=== PATIENT | female | born 1975 | race Caucasian/White ===

== ENCOUNTER → 2019-03-27 | Outpatient (CLI) | payer OTHER ==
--- NOTE | 2019-03-27 11:37 | MM ---
Reason for exam: screening (asymptomatic). Baseline mammogram. History: Patient history of other cancer. Physical Findings: Nurse did not find any significant physical abnormalities on exam. MG Screening Mammo w CAD Bilateral CC and MLO view(s) were taken. XCCL view(s) were taken of the left breast. The breast tissue is heterogeneously dense. This may lower the sensitivity of mammography. There is no discrete abnormality. These results were verbally communicated with the patient and result sheet given to the patient on 03/27/19. ASSESSMENT: Negative, BI-RAD 1 RECOMMENDATION: Routine screening mammogram of both breasts in 1 year.
== END | disposition home or self-care (01) ==
LOC: RADMAMWWP 09:48
PROVIDERS: ATTEND Family Medicine
DX: Z12.31 Encounter for screening mammogram for malignant neoplasm of breast (principal)
CPT/HCPCS: 77067

== ENCOUNTER → 2019-05-23 | Outpatient (CLI) | payer OTHER ==
[2019-05-23 15:02] LABS: Basophils % (A) 1 %; Eosinophils # (A) 0.1 k/uL (0-0.7); Eosinophils % (A) 1 %; HCT 39.8 % (34.0-46.0); HGB 13.3 gm/dL (11.4-16.0); Lymphocytes # (A) 2.3 k/uL (1.0-4.8); Lymphocytes % (A) 35 %; MCH 29.5 pg (25.0-35.0); MCHC 33.4 g/dL (31.0-37.0); MCV 88.3 fL (80.0-100.0); Monocytes # (A) 0.4 k/uL (0-1.0); Monocytes % (A) 6 %; Neutrophils # (A) 3.5 k/uL (1.3-7.7); Neutrophils % (A) 55 %; Platelet Count 244 k/uL (150-450); RBC 4.51 m/uL (3.80-5.40); RDW 13.2 % (11.5-15.5); WBC 6.4 k/uL (3.8-10.6)
== END | disposition home or self-care (01) ==
LOC: LABPAT 14:16
PROVIDERS: ATTEND Obstetrics & Gynecology
DX: Z01.818 Encounter for other preprocedural examination (principal)
CPT/HCPCS: 36415; 85025

== ENCOUNTER 2020-03-26 08:04 | Day surgery (SDC) | payer OTHER ==
[2020-03-24 09:37] VITALS: BMI 25.7
--- NOTE | 2020-03-24 16:31 | P.HPOB ---
History of Present Illness H&P Date: 03/24/20 Chief Complaint: Family planning Isabelle is a 45-year-old female who is completed her family planning and desires permanent sterilization. She is scheduled for a left scopic tubal ligation with Filshie clips. Risks/benefits/alternatives to this procedure were reviewed with patient in detail and did include but were not limited to bleeding infection, damage to bladder or bowel, vascular injuries, nerve injuries, potential need for other surgery. It is noted she does have an IUD as well and will be removed at the time of her surgery. There is also possibility that a cystoscopy may be required if we are unable to visualize the strings or find the IUD in initially. All other questions are answered for her prior to proceeding to the operative room. Past Medical History Past Medical History: No Reported History History of Any Multi-Drug Resistant Organisms: None Reported Additional Past Surgical History / Comment(s): wisdom teeth removed Past Anesthesia/Blood Transfusion Reactions: No Reported Reaction Smoking Status: Current every day smoker - Past Family History Mother Family Medical History: No Reported History Medications and Allergies Home Medications Medication Instructions Recorded Confirmed Type Dextroamphetamine/Amphetamine 30 mg PO BID 03/24/20 03/24/20 History [Adderall] Allergies Allergy/AdvReac Type Severity Reaction Status Date / Time No Known Allergies Allergy Verified 03/24/20 09:23 Exam Osteopathic Statement: *. No significant issues noted on an osteopathic structural exam other than those noted in the History and Physical/Consult. Intake and Output 03/24/20 03/24/20 03/24/20 06:59 14:59 22:59 Other: Weight 68.039 kg - OBG Physical Exam Breast: both: normal (no masses) Abdomen: bowel sounds normal, no diffuse tenderness, no bruit present, no guarding noted, no hepatomegaly, no splenomegaly, no mass Vulva: both: normal Vagina: normal moisture, no discharge Cervix: no lesion, no discharge Uterus: normal size, normal contour Adnexa: both: normal Anus/Rectum: normal perianal skin, no rectal mass, no hemorrhoids, heme negative
[~2020-03-26 08:04] MED LIST: DEXAMETHASONE SOD PHOSPHATE 4 MG/ML 1 ML VIAL IV ONE; HYDROmorphone 0.5 MG/0.5 ML SYRINGE IVP PRN; LACTATED RINGERS 1,000 ML IV SCH; LIDOCAINE 1% (10MG/ML) FOR IV START INTRADERMA PRN; MIDAZOLAM 2 MG/2 ML VIAL IV PRN; ONDANSETRON 4 MG/2 ML VIAL IVP ONE; Pre Op ABX Message 1 EACH MISC MISCELLANE ONE
[2020-03-26] MEDS ORDERED: LACTATED RINGERS 1,000 ML IV ONE (08:28)
[2020-03-26] MEDS ORDERED: MIDAZOLAM 2 MG/2 ML VIAL ONE (09:19)
[2020-03-26] MEDS ORDERED: LIDOCAINE 1% INJ 10MG/ML (20 ML MDV) ONE (09:19)
[2020-03-26] MEDS ORDERED: KETOROLAC 15 MG/ML 1 ML VIAL ONE (09:19)
[2020-03-26] MEDS ORDERED: GLYCOPYRROLATE 0.2 MG/ML 2 ML VIAL ONE (09:19)
[2020-03-26] MEDS ORDERED: NEOSTIGMINE 1 MG/ML 10 ML VIAL ONE (09:19)
[2020-03-26] MEDS ORDERED: PROPOFOL 10 MG/ML 20 ML VIAL IV ONE (09:19)
[2020-03-26] MEDS ORDERED: fentaNYL (PF) 50 MCG/ML 2 ML AMP ONE (09:19)
[2020-03-26] MEDS ORDERED: ROCURONIUM 10 MG/ML (10 ML VIAL) IV ONE (09:19)
[2020-03-26] MEDS ORDERED: BUPIVACAINE (PF) 0.25% 30 ML VIAL SQ ONE (09:38)
--- NOTE | 2020-03-26 09:54 | P.OP ---
Date of Procedure: 03/26/20 Preoperative Diagnosis: Family planning Postoperative Diagnosis: Same Procedure(s) Performed: Laparoscopic tubal occlusion with Filshie clips and removal of IUD Anesthesia: MARIA GUADALUPE Surgeon: Cayetano Hull Estimated Blood Loss (ml): 3 IV fluids (ml): 500 Urine output (ml): 30 Pathology: none sent Condition: stable Disposition: same day Operative Findings: Normal pathology Description of Procedure: Isabelle was taken to the operating suite where a general anesthetic was found be adequate. She was prepped and draped in normal sterile fashion and placed in the dorsal lithotomy position. Initially a weighted speculum was inserted in vagina and anterior lip of cervix was identified and grasped with single-tooth tenaculum. Uterus was then sounded to 9 cm and a manipulator was inserted without difficulty. Just prior to this the IUD was grasped with a ring forceps and removed without difficulty. Red rubber catheter was then used to drain the bladder of urine, all other vaginal incidents removed. Gloves were changed and attention was turned to the abdominal portion procedure were 2 mL of quarter percent Marcaine was injected periumbilically. Through this injected anesthetic a 5 mm skin incision was made and through this incision, under direct visualization with an optical trocar and sleeve the camera was inserted. Once peritoneal placement was assured gas was allowed to fully insufflate the abdomen and patient's placement steep Trendelenburg position. A second port and sleeve were then inserted 3 cm above the pubic symphysis in the midline through an 8 mm skin incision. This trocar was again inserted under direct visualization. Observations Upton noted. Uterus was then elevated and fully tubes identified. First the right fallopian tube than left fallopian tube had a Filshie clip applied 2 cm from uterine cornu. No bleeding is noted in the mesosalpinx therefore incidents removed and gas is allowed to expel from the abdomen. 5 deep breaths were provided during this process. 4-0 Vicryl was then used to close incision subarticular. Sponge, lap, needle counts were all correct 2. Patient was then taken to the recovery room in stable and satisfactory condition. Plan - Discharge Summary Discharge Rx Participant: Yes New Discharge Prescriptions: New Ibuprofen [Motrin] 600 mg PO Q6HR PRN #20 tab PRN Reason: Pain HYDROcodone/APAP 5-325MG [[facility]-325] 1 tab PO Q4HR PRN #30 tab PRN Reason: Pain No Action Dextroamphetamine/Amphetamine [Adderall] 30 mg PO BID Discharge Medication List Dextroamphetamine/Amphetamine [Adderall] 30 mg PO BID 03/24/20 [History] HYDROcodone/APAP 5-325MG [[facility]-325] 1 tab PO Q4HR PRN #30 tab 03/26/20 [Rx] Ibuprofen [Motrin] 600 mg PO Q6HR PRN #20 tab 03/26/20 [Rx] Follow up Appointment(s)/Referral(s): Cayetano Hull DO [Doctor of Osteopathic Medicine] - 2 Weeks Activity/Diet/Wound Care/Special Instructions: Lifting, limited stairs and driving, and pelvic rest. If any high temperatures, heavy bleeding, or severe pain call my office Discharge Disposition: HOME SELF-CARE
[2020-03-26 10:08] VITALS: TEMP 98
[2020-03-26 11:20] VITALS: BP 139/87; PULSE 61; RESP 16
== END 2020-03-26 11:51 | disposition home or self-care (01) ==
LOC: OR 08:04
PROVIDERS: ATTEND Obstetrics & Gynecology
DX: Z30.2 Encounter for sterilization (principal); Z30.432 Encounter for removal of intrauterine contraceptive device; F17.290 Nicotine dependence, other tobacco product, uncomplicated; Z79.899 Other long term (current) drug therapy
CPT/HCPCS: 81025; 58671; 58301; J2250; J1100; J2710; J2405; J2001; J3010; J1885; J2704

== ENCOUNTER → 2024-09-05 | Outpatient (CLI) | payer BC ==
--- NOTE | 2024-09-05 14:02 | CT ---
EXAMINATION TYPE: CT pelvis w con CT DLP: 723 mGycm, Automated exposure control for dose reduction was used. DATE OF EXAM: 09/05/2024 1:30 PM COMPARISON: Pelvic ultrasound 12/26/2012 CLINICAL INDICATION:Female, 49 years old with history of R31.0 GROSS HEMATURIA; left groin pain and s welling TECHNIQUE: Standard CT of the pelvis following the administration of 100 cc of Isovue [address] material and oral contrast. Delayed imaging was performed. Coronal and sagittal reformats were per formed. FINDINGS: BLADDER: Unremarkable appearance of the urinary bladder. Small amount of contrast demonstrated within the urinary bladder on the delayed phase. No obvious filling defect. Contrast demonstrate within bot h visualized mid to distal ureters on the delayed phase without filling defects identified. REPRODUCTIVE: Unremarkable anteverted uterus. Left ovarian 3.0 cm dominant follicular cyst. BOWEL: Enteric contrast reaches the rectum. No focal bowel wall thickening or surrounding inflammator y changes. Distal colonic diverticulosis without evidence for acute diverticulitis. No evidence of patti wel obstruction. PERITONEUM: No evidence of pneumoperitoneum or free fluid. VASCULATURE: Left-sided pelvic phleboliths. MUSCULOSKELETAL: No acute osseous abnormalities. No aggressive osseous lesion. LYMPH NODES: No evidence for lymphadenopathy. SOFT TISSUE/ABDOMINAL WALL: Small fat filled umbilical hernia. No evidence for inguinal hernia. There is a fluid collection within the left inguinal soft tissues measuring 3.9 x 2.4 cm without enhancing wall or internal gas. No surrounding fat stranding. IMPRESSION: 1. Left inguinal fluid collection favored to represent a hydrocele of the canal of Nuck. 2. Colonic diverticulosis without visualized acute diverticulitis. [facility], , 09/05/2024 2:00 PM
== END | disposition home or self-care (01) ==
LOC: RADCTMAIN 11:42
PROVIDERS: ATTEND Surgery
DX: K57.30 Diverticulosis of large intestine without perforation or abscess without bleeding (principal); R19.09 Other intra-abdominal and pelvic swelling, mass and lump
CPT/HCPCS: 72193; Q9967